=== PATIENT | female | born 1995 | race Two or more races ===

== ENCOUNTER 2022-06-12 08:56 | Inpatient (IN) | payer BC, OTHER ==
[~2022-06-12 08:56] MED LIST: Bupivacaine 0.25% HCL 30 ML VIAL ONE; Lidocaine 2% PF 5 ML VIAL ONE
[2022-06-12 09:43] VITALS: BMI 38.0
[2022-06-12] MEDS ORDERED: Ondansetron PF 4 MG/2 ML Vial IVP PRN ×2 (10:16→14:50)
[2022-06-12] MEDS ORDERED: hydrALAZINE 20 MG/ML VIAL SLOW IVP PRN ×2 (10:16→16:41)
[2022-06-12] MEDS ORDERED: HYDROcodone/Acetaminophen 5/325 mg Tablet PO PRN ×4 (10:16→16:41)
[2022-06-12] MEDS ORDERED: Misoprostol 200 MCG TAB PR PRN (10:16)
[2022-06-12] MEDS ORDERED: Ibuprofen 800 MG TAB PO PRN (10:16)
[2022-06-12] MEDS ORDERED: Methylergonovine 0.2 MG/ML VIAL IM PRN (10:16)
[2022-06-12] MEDS ORDERED: Lidocaine 1% (PF) 30 ML VIAL SC PRN (10:16)
[2022-06-12] MEDS ORDERED: Promethazine HCl 25 MG/ML VIAL IM PRN ×2 (10:16→14:50)
[2022-06-12] MEDS ORDERED: Butorphanol Tartrate 1 MG/ML VIAL SLOW IVP PRN (10:16)
[2022-06-12] MEDS ORDERED: NS w/ Oxytocin 30 units 500 ML IV SCH ×3 (10:30→16:41)
[2022-06-12] MEDS ORDERED: Penicillin G Potassium 5 MILL.UNITS in Sodium Chloride 0.9% 100 ML IVPB SCH (10:30)
[2022-06-12] MEDS ORDERED: Lactated Ringer's 1,000 ML IV SCH (10:30)
[2022-06-12 10:43] LABS: Hemoglobin 11.5 g/dL (12.0-15.5); Mean Corpuscular HGB CONC 34.3 g/dL (32.0-36.0); Mean Corpuscular Volume 84.6 fl (81.6-98.3); Mean Platelet Volume 10.7 fl (7.4-10.4); Platelet Count 317 10x3/uL (150-450); RBC Distribution Width 12.6 % (11.5-14.5); Red Blood Cell (RBC) Count 3.96 10x6/uL (3.90-5.03); White Blood Cell (WBC) Count 11.2 10x3/uL (3.5-10.5)
[2022-06-12 11:05] LABS: HBSAg Index 0.14 S/CO (0-0.99); Hep B Surf Ag Non-Reactive S/CO (NonReactive)
[2022-06-12 11:06] LABS: Syphilis Antibody Nonreactive (Nonreactive); Syphilis Antibody Index 0.05 S/CO (<1.00 Non-Reactive)
[2022-06-12 11:40] LABS: SARS-CoV-2 NAA Rapid Test Not Detected (NotDetected)
[2022-06-12] MEDS ORDERED: Fentanyl 2 mcg/Bup 0.1% Cadd 100 ML ONE (14:05)
[2022-06-12] MEDS ORDERED: Penicillin G 2.5 MILL.units 2.5 MILL.UNITS in Premix Bag 1 BAG IVPB SCH (14:30)
[2022-06-12] MEDS ORDERED: Naloxone HCl 0.4 mg/ml Vial IVP PRN ×2 (14:50)
[2022-06-12] MEDS ORDERED: ePHEDrine Sulfate 50 MG/10 ML VIAL SLOW IVP PRN (14:50)
[2022-06-12] MEDS ORDERED: diphenhydrAMINE 50 MG/ML VIAL IVP PRN (14:50)
[2022-06-12] MEDS ORDERED: Moisturizing Cream (Eucerin) 113 GM JAR TOP PRN (14:50)
[2022-06-12] MEDS ORDERED: Lactated Ringer's 500 ML IV PRN (14:50)
[2022-06-12] MEDS ORDERED: Acetaminophen 325 MG TAB PO PRN (14:50)
[2022-06-12] MEDS ORDERED: Communication Order-Pharmacy FS SCH (15:00)
[2022-06-12] MEDS ORDERED: Fentanyl 2 mcg/Bupivacaine 0.1% Cassette 100 ML EPIDURAL SCH (15:00)
[2022-06-12] MEDS ORDERED: Benzocaine-Menthol 82.5 ML CAN TOP PRN (16:41)
[2022-06-12] MEDS ORDERED: Milk Of Magnesia 30 ML UDCUP PO PRN (16:41)
[2022-06-12] MEDS ORDERED: Lanolin Ointment 7 GM TUBE TOP PRN (16:41)
[2022-06-12] MEDS ORDERED: Bisacodyl 10 MG SUPP PR PRN (16:41)
[2022-06-12] MEDS ORDERED: Boostrix 0.5 ML (Tdap) VIAL (>/=7 yrs of age) IM ONE (16:41)
[2022-06-12] MEDS ORDERED: Misoprostol 200 MCG TAB VAG PRN (16:41)
[2022-06-12] MEDS: Ferrous Sulfate 325 MG TAB PO SCH (18:45)
[2022-06-12] MEDS: Docusate 100 MG CAP PO SCH (21:51)
[2022-06-12] MEDS: Ibuprofen 800 MG TAB PO SCH (21:53)
[2022-06-12] MEDS ORDERED: Ibuprofen 800 MG TAB PO SCH (22:00)
[2022-06-13] MEDS: Ibuprofen 800 MG TAB PO SCH ×3 (06:05→22:25)
[2022-06-13] MEDS: Ferrous Sulfate 325 MG TAB PO SCH ×2 (07:37→17:36)
[2022-06-13] MEDS: Docusate 100 MG CAP PO SCH ×2 (08:34→22:25)
[2022-06-13] MEDS: Prenatal Vitamin 1 TAB PO SCH (08:34)
[2022-06-13 20:24] VITALS: TEMP 98.2
[2022-06-14] MEDS: Ibuprofen 800 MG TAB PO SCH ×2 (05:49→13:35)
[2022-06-14 07:45] VITALS: BP 117/73
[2022-06-14] MEDS: Ferrous Sulfate 325 MG TAB PO SCH (08:33)
[2022-06-14] MEDS: Docusate 100 MG CAP PO SCH (08:35)
[2022-06-14] MEDS: Prenatal Vitamin 1 TAB PO SCH (08:35)
== END 2022-06-14 18:55 | disposition home or self-care (01) | DRG 807 ==
LOC: EEVIPCON 08:56 → CSHLD 08:56 → CSHPED 17:45
PROVIDERS: ADMIT Obstetrics & Gynecology; ATTEND Obstetrics & Gynecology
PROC: 10E0XZZ Delivery of Products of Conception, External Approach (ICD-10-PCS; principal; 2022-06-12)
DX: O42.013 Preterm premature rupture of membranes, onset of labor within 24 hours of rupture, third trimester (principal); Z37.0 Single live birth; Z20.822 Contact with and (suspected) exposure to COVID-19; Z3A.36 36 weeks gestation of pregnancy; O71.89 Other specified obstetric trauma
CPT/HCPCS: 85027; 86780; 86850; 86900; 86901; 87340; J2001; J2540; J2590; J3490; S0020; U0002

== ENCOUNTER 2024-03-11 10:06 | Day surgery (SDC) | payer BC, OTHER ==
[2024-03-11 10:33] VITALS: BMI 41.0
[2024-03-11 11:25] LABS: #Basophils 0.02 10x3/uL (0.0-0.2); #Eosinophils 0.05 10x3/uL (0.0-0.5); #Monocytes 0.69 10x3/uL (0.0-1.1); #Neutrophils 6.19 10x3/uL (1.5-8.4); %Basophils 0.2 % (0.0-2.0); %Eosinophils 0.6 % (0.0-6.0); %Neutrophils 71.9 % (40.0-75.0); Hematocrit 31.8 % (34.9-44.5); Hemoglobin 10.8 g/dL (12.0-15.5); Mean Corpuscular Hemoglobin 29.3 pg (27.0-33.0); Mean Corpuscular Volume 86.4 fL (81.6-98.3); Mean Platelet Volume 10.2 fL (7.4-10.4); Platelet Count 286 10x3/uL (150-450); RBC Distribution Width 12.9 % (11.5-14.5); Red Blood Cell (RBC) Count 3.68 10x6/uL (3.90-5.03); White Blood Cell (WBC) Count 8.6 10x3/uL (3.5-10.5)
[2024-03-11 11:43] LABS: ALT (SGPT) 9 U/L (8-55); AST (SGOT) 14 U/L (5-34); Albumin 2.8 g/dL (3.5-5.0); Alkaline Phosphatase 146 U/L (40-110); Anion Gap 13 mmol/L (10-20); BUN (Urea Nitrogen) 6 mg/dL (7.0-18.7); Bilirubin, Total 0.6 mg/dL (0.2-1.2); Calc. Creatinine Clearance 189 mL/min (70-130); Calcium 9.3 mg/dL (7.8-10.44); Carbon Dioxide 19 mmol/L (22-29); Chloride 107 mmol/L (98-107); Estimated GFR 122; Globulin 3.9 g/dL (2.4-3.5); Glucose 68 mg/dL (70-105); Potassium 4.2 mmol/L (3.5-5.1); Protein, Total 6.7 g/dL (6.0-8.3); Sodium 135 mmol/L (136-145)
[2024-03-11 11:46] LABS: Creatinine, Urine 139.03 mg/dL (47-110)
== END 2024-03-11 12:15 | disposition home or self-care (01) ==
LOC: CSHLD/OP 10:06
PROVIDERS: ATTEND Obstetrics & Gynecology
DX: O47.03 False labor before 37 completed weeks of gestation, third trimester (principal); Z3A.35 35 weeks gestation of pregnancy; Z79.899 Other long term (current) drug therapy
CPT/HCPCS: 36416; 80053; 82570; 84156; 85025; 99283

== ENCOUNTER 2024-03-23 00:52 | Inpatient (IN) | payer BC, OTHER ==
[2024-03-23 01:31] VITALS: BMI 42.5
[2024-03-23] MEDS ORDERED: Diphenoxylate HCl/Atropine Tablet PO PRN ×2 (01:34)
[2024-03-23] MEDS ORDERED: Lidocaine 1% (PF) 30 ML VIAL SC PRN (01:34)
[2024-03-23] MEDS ORDERED: Tranexamic Acid 1,000 MG/10 ML VIAL IVP PRN (01:34)
[2024-03-23] MEDS ORDERED: Ondansetron PF 4 MG/2 ML Vial IVP PRN ×2 (01:34→02:35)
[2024-03-23] MEDS ORDERED: Acetaminophen 500 MG TAB PO PRN (01:34)
[2024-03-23] MEDS ORDERED: Carboprost 250 MCG/ML AMP IM PRN (01:34)
[2024-03-23] MEDS ORDERED: Promethazine HCl 25 MG/ML VIAL IM PRN ×2 (01:34→02:35)
[2024-03-23] MEDS ORDERED: Misoprostol 200 MCG TAB PR PRN (01:34)
[2024-03-23] MEDS ORDERED: hydrALAZINE 20 MG/ML VIAL SLOW IVP PRN ×2 (01:34→04:40)
[2024-03-23] MEDS ORDERED: Oxytocin 30 units/NS 500 ML 500 ML IV SCH ×3 (01:45→04:40)
[2024-03-23] MEDS ORDERED: Lactated Ringer's 1,000 ML IV SCH (01:45)
[2024-03-23] MEDS: fentaNYL 50 mcg/mL 1 mL Vial ONE (01:55)
[2024-03-23 02:11] LABS: Hematocrit 30.7 % (34.9-44.5); Hemoglobin 10.6 g/dL (12.0-15.5); Mean Corpuscular HGB CONC 34.5 g/dL (32.0-36.0); Mean Corpuscular Hemoglobin 29.3 pg (27.0-33.0); Mean Corpuscular Volume 84.8 fL (81.6-98.3); Mean Platelet Volume 10.3 fL (7.4-10.4); Platelet Count 294 10x3/uL (150-450); RBC Distribution Width 13.1 % (11.5-14.5); Red Blood Cell (RBC) Count 3.62 10x6/uL (3.90-5.03); White Blood Cell (WBC) Count 14.2 10x3/uL (3.5-10.5)
[2024-03-23] MEDS: fentaNYL/Ropivacaine Epidural 100 ML ONE (02:31)
[2024-03-23] MEDS ORDERED: diphenhydrAMINE 50 MG/ML VIAL IVP PRN (02:35)
[2024-03-23] MEDS ORDERED: Acetaminophen 325 MG TAB PO PRN (02:35)
[2024-03-23] MEDS ORDERED: Moisturizing Cream (Eucerin) 113 GM JAR TOP PRN (02:35)
[2024-03-23] MEDS ORDERED: Lactated Ringer's 500 ML IV PRN (02:35)
[2024-03-23] MEDS ORDERED: Naloxone HCl 0.4 mg/ml Vial IVP PRN ×2 (02:35)
[2024-03-23] MEDS ORDERED: ePHEDrine Sulfate 50 MG/10 ML VIAL SLOW IVP PRN (02:35)
[2024-03-23 02:42] LABS: Syphilis Antibody Nonreactive (Nonreactive); Syphilis Antibody Index 0.06 S/CO (<1.00 Non-Reactive)
[2024-03-23 02:44] LABS: HBsAg Index 0.14 S/CO (0-0.99); Hep B Surf Ag - L&D Non-Reactive S/CO (NonReactive)
[2024-03-23] MEDS ORDERED: Communication Order-Pharmacy FS SCH (02:45)
[2024-03-23] MEDS ORDERED: fentaNYL 2 mcg/Ropivacaine 0.2% Epidural 100 ML CADD EPIDURAL SCH (02:45)
[2024-03-23] MEDS ORDERED: Misoprostol 100 MCG TAB VAG SCH (03:00)
[2024-03-23] MEDS: Oxytocin 30 units/NS 500 ML 500 ML ONE (03:20)
[2024-03-23 03:40] LABS: Analyzer IN Cardio CS NICU; Critical Notified By: clumpkins rt
[2024-03-23 03:41] LABS: Analyzer IN Cardio CS NICU; Critical Notified By: clumpkins rt; RapidComm Collect By LD RN; pH (Cord, venous) 7.269 (7.250-7.350)
[2024-03-23] MEDS ORDERED: Milk Of Magnesia 30 ML UDCUP PO PRN (04:40)
[2024-03-23] MEDS ORDERED: Bisacodyl 10 MG SUPP PR PRN (04:40)
[2024-03-23] MEDS ORDERED: Benzocaine-Menthol 82.5 ML CAN TOP PRN (04:40)
[2024-03-23] MEDS ORDERED: Lanolin Ointment 7 GM TUBE TOP PRN (04:40)
[2024-03-23] MEDS ORDERED: HYDROcodone/Acetaminophen 5/325 mg Tablet PO PRN ×2 (04:40)
[2024-03-23] MEDS ORDERED: Misoprostol 200 MCG TAB VAG PRN (04:40)
[2024-03-23] MEDS: Ibuprofen 800 MG TAB PO SCH (04:58)
[2024-03-23] MEDS: Ferrous Sulfate 325 MG TAB PO SCH (07:17)
[2024-03-23] MEDS ORDERED: Bupivacaine/Epinephrine 0.25% 30 ML VIAL ONE (08:00)
[2024-03-23] MEDS ORDERED: Bupivacaine HCl 0.5%/Epinephrine 1:200,000/PF 30 ml Vial ONE (08:00)
[2024-03-23] MEDS: Prenatal Vitamin 1 TAB PO SCH (08:51)
[2024-03-23] MEDS: Docusate 100 MG CAP PO SCH (08:51)
[2024-03-23] MEDS: Boostrix 0.5 ML (Tdap) VIAL (>/=7 yrs of age) IM ONE (19:24)
[2024-03-23 20:08] VITALS: BP 117/65; TEMP 98.4
== END 2024-03-24 16:45 | disposition home or self-care (01) | DRG 807 ==
LOC: CSHLD/OP 00:52 → CSHLD 01:34 → CSHPP 05:55
PROVIDERS: ADMIT Obstetrics & Gynecology; ATTEND Obstetrics & Gynecology
PROC: 10E0XZZ Delivery of Products of Conception, External Approach (ICD-10-PCS; principal; 2024-03-23)
PROC: 4A033R1 Measurement of Arterial Saturation, Peripheral, Percutaneous Approach (ICD-10-PCS; 2024-03-23)
DX: O76 Abnormality in fetal heart rate and rhythm complicating labor and delivery (principal); Z37.0 Single live birth; Z3A.37 37 weeks gestation of pregnancy
CPT/HCPCS: 36415; 82805; 85027; 86780; 86850; 86900; 86901; 87340; J2590; J3010